=== PATIENT | male | born 1980 | race Caucasian/White ===

== ENCOUNTER 2021-05-02 16:00 | Emergency (ER) | payer OTHER ==
[~2021-05-02] VITALS: Ht 185.4 cm; Wt 82.0 kg
[2021-05-02 20:04] VITALS: BP 139/84
== END 2021-05-02 20:06 | disposition home or self-care (01) ==
LOC: ER 16:00
DX: R53.1 Weakness (principal); R42 Dizziness and giddiness; R00.0 Tachycardia, unspecified; Z98.890 Other specified postprocedural states
CPT/HCPCS: 93005; 99283

== ENCOUNTER 2021-05-05 14:16 | Emergency (ER) | payer OTHER ==
[~2021-05-05] VITALS: Ht 165.1 cm; Wt 80.0 kg
[2021-05-05] MEDS ORDERED: FOLIC ACID 1 MG, THIAMINE HCL 100 MG, MVI, ADULT NO.1 10 ML in DEXTROSE 5% WATER 1,000 ML IV ONE (14:45)
[2021-05-05] MEDS ORDERED: OLANZAPINE 10 MG/VIAL IM ONE (15:00)
[2021-05-05] MEDS ORDERED: LORAZEPAM 2MG/ML CPJ IM ONE (15:00)
[2021-05-05 15:03] LABS: BASOPHILS % 0.8 % (0.0-2.0); HEMATOCRIT. 42.8 % (42.0-52.0); HEMOGLOBIN. 14.4 g/dL (14.0-18.0); LYMPHOCYTES % 19.5 % (20.0-50.0); MEAN CORPUSCULAR HEMOGLOBIN 29.9 pg (28.0-32.0); MEAN CORPUSCULAR VOLUME 88.8 fL (80.0-94.0); MEAN PLATELET VOLUME 8.1 fl (7.4-10.4); MONOCYTES % 6.3 % (2.0-8.0); NEUTROPHILS % 72.4 % (40.0-76.0); PLATELET 287 x1000/uL (130-400); RED BLOOD CELL COUNT 4.83 mill/uL (4.7-6.1); RED CELL DISTRIBUTION WIDTH 13.3 % (11.6-14.6)
[2021-05-05 15:08] LABS: CHLORIDE 104 mEq/L (98-107)
[2021-05-05 15:13] LABS: ETHANOL BLOOD < 10 mg/dL
[2021-05-05 17:07] LABS: CLARITY URINE CLEAR (CLEAR); COLOR URINE YELLOW (YELLOW); KETONES URINE TRACE (NEGATIVE); LEUKOCYTE ESTERASE URINE NEGATIVE (NEGATIVE); NITRITE URINE NEGATIVE (NEGATIVE); OCCULT BLOOD URINE NEGATIVE (NEGATIVE); PROTEIN URINE TRACE (NEGATIVE); SPECIFIC GRAVITY URINE 1.027 (1.005-1.030); UROBILINOGEN URINE 0.2 E.U./dL (0.2-1.0)
[2021-05-05 17:20] VITALS: BP 122/60
[2021-05-05 17:35] LABS: *BARBITURATES SCREEN URINE NEGATIVE (NEGATIVE)
[2021-05-05 17:36] LABS: *AMPHETAMINES SCREEN URINE PRESUMTIVE POSITIVE (NEGATIVE); *BENZODIAZEPINES SCREEN URINE NEGATIVE (NEGATIVE); *COCAINE SCREEN URINE NEGATIVE (NEGATIVE); METHADONE URINE SCREEN NEGATIVE (NEGATIVE); OPIATES URINE SCREEN NEGATIVE (NEGATIVE); PHENCYCLIDINE URINE SCREEN PRESUMTIVE POSITIVE (NEGATIVE)
[2021-05-05 17:37] LABS: CANNABINOID URINE SCREEN PRESUMTIVE POSITIVE (NEGATIVE)
== END 2021-05-05 18:21 | disposition left against medical advice (07) ==
LOC: ER 14:16
DX: T40.991A Poisoning by other psychodysleptics [hallucinogens], accidental (unintentional), initial encounter (principal); T43.621A Poisoning by amphetamines, accidental (unintentional), initial encounter; T39.091A Poisoning by salicylates, accidental (unintentional), initial encounter; T40.7X1A Poisoning by cannabis (derivatives), accidental (unintentional), initial encounter; G92 Toxic encephalopathy; R45.1 Restlessness and agitation; F20.9 Schizophrenia, unspecified; Z78.1 Physical restraint status; Z79.1 Long term (current) use of non-steroidal anti-inflammatories (NSAID); Y92.480 Sidewalk as the place of occurrence of the external cause; Z59.0 Homelessness
CPT/HCPCS: 36415; 80053; 80305; 80307; 80320; 80329; 81003; 85025; 96372; 99283; J2060; J3490; J3411; J7070; G0480

== ENCOUNTER 2021-05-05 18:33 | Emergency (ER) | payer OTHER ==
[~2021-05-05] VITALS: Ht 182.9 cm; Wt 80.0 kg
[2021-05-05 19:18] VITALS: BP 145/62
== END 2021-05-05 21:30 | disposition left against medical advice (07) ==
LOC: ER 18:33
DX: F15.10 Other stimulant abuse, uncomplicated (principal); F16.10 Hallucinogen abuse, uncomplicated; F14.10 Cocaine abuse, uncomplicated; F12.10 Cannabis abuse, uncomplicated; R00.0 Tachycardia, unspecified; H55.00 Unspecified nystagmus; F17.210 Nicotine dependence, cigarettes, uncomplicated; Z71.6 Tobacco abuse counseling; F20.9 Schizophrenia, unspecified
CPT/HCPCS: 93005; 99283; 99406